=== PATIENT | female | born 1995 | race Caucasian/White ===

== ENCOUNTER 2016-08-23 15:55 | Emergency (ER) | payer OTHER ==
[2016-08-23 17:39] VITALS: BP 118/75
== END 2016-08-23 17:39 | disposition home or self-care (01) ==
LOC: ED 15:55
DX: S01.01XA Laceration without foreign body of scalp, initial encounter (principal); W01.0XXA Fall on same level from slipping, tripping and stumbling without subsequent striking against object, initial encounter; Y93.89 Activity, other specified; Y99.8 Other external cause status; Y92.89 Other specified places as the place of occurrence of the external cause

== ENCOUNTER 2016-08-26 17:42 | Emergency (ER) | payer OTHER ==
[~2016-08-26] VITALS: Ht 165.1 cm; Wt 85.3 kg
[2016-08-26 19:30] VITALS: BP 125/72
== END 2016-08-26 19:30 | disposition home or self-care (01) ==
LOC: ED 17:42
DX: S01.01XA Laceration without foreign body of scalp, initial encounter (principal); X58.XXXA Exposure to other specified factors, initial encounter; Y93.89 Activity, other specified; Y92.89 Other specified places as the place of occurrence of the external cause; Y99.8 Other external cause status

== ENCOUNTER 2016-08-30 13:03 | Emergency (ER) | payer OTHER ==
[2016-08-30 14:07] VITALS: BP 147/97
== END 2016-08-30 14:41 | disposition home or self-care (01) ==
LOC: ED 13:03
DX: S01.01XD Laceration without foreign body of scalp, subsequent encounter (principal); X58.XXXD Exposure to other specified factors, subsequent encounter; Y92.89 Other specified places as the place of occurrence of the external cause; Y99.8 Other external cause status